=== PATIENT | female | born 1995 | race Caucasian/White ===

== ENCOUNTER 2016-08-10 19:52 | Emergency (ER) | payer BC ==
[~2016-08-10] VITALS: Ht 162.6 cm; Wt 54.4 kg
[2016-08-10] MEDS ORDERED: IV NS 0.9% 1,000 ML BAG IV ONE (20:30)
[2016-08-10] MEDS ORDERED: KETOROLAC TROMETHAMINE INJ 30 MG/ML VIAL IV ONE (20:30)
[2016-08-10] MEDS ORDERED: KETOROLAC TROMETHAMINE INJ 30 MG/ML VIAL ONE (20:31)
[2016-08-10] MEDS ORDERED: IV NS 0.9% 1,000 ML ONE (20:32)
[2016-08-10] MEDS ORDERED: IV SET PRIMARY 1 EA INFUS.SET MC ONE ×3 (20:32→22:26)
[2016-08-10 20:45] LABS: BASOPHILS # (AUTO) 0.1 /CMM (0.0-0.2); BASOPHILS % (AUTO) 0.9 % (0.0-2.0); DIFF TOTAL % 100 %; EOSINOPHILS # (AUTO) 0.2 /CMM (0.0-0.7); EOSINOPHILS % (AUTO) 1.5 % (0.0-6.0); HEMATOCRIT 33 % (33-45); HEMOGLOBIN 10.7 g/dL (11.5-14.8); LYMPHOCYTES # (AUTO) 1.5 /CMM (0.8-4.8); LYMPHOCYTES % (AUTO) 10.8 % (20.0-44.0); MEAN CORPUSCULAR HEMOGLOBIN 25 PG (26.0-33.0); MEAN CORPUSCULAR HGB CONC 33 g/dl (31.0-36.0); MEAN CORPUSCULAR VOLUME 75 fL (82-100); MONOCYTES # (AUTO) 0.9 /CMM (0.1-1.30); MONOCYTES % (AUTO) 6.5 % (2.0-12.0); NEUTROPHILS % (AUTO) 80.3 % (43.0-81.0); PLATELET COUNT (AUTO) 323 /CMM (150-450); RED BLOOD CELL COUNT(AUTO) 4.38 MIL/uL (4.0-5.2); WHITE BLOOD COUNT (AUTO) 13.7 K/uL (4.3-11.0)
[2016-08-10 21:00] LABS: ANION GAP 10 (5-14); CALCIUM, SERUM 8.6 mg/dL (8.5-10.1); CARBON DIOXIDE 30 mmol/L (21-32); CHLORIDE 99 mmol/L (98-107); GFR 69 mL/min (>60); GLUCOSE 95 mg/dL (74-106); POTASSIUM 3.5 mmol/L (3.5-5.1); SODIUM SERUM 136 mmol/L (136-145); UREA NITROGEN, BLOOD 8 mg/dL (7-18)
[2016-08-10 21:06] LABS: ACETAMINOPHEN 5 ug/ml (10-30); ALANINE AMINOTRANSFERASE 23 U/L (12-78); ALBUMIN 3.6 g/dL (3.4-5.0); ASPARTATE AMINOTRANSFERASE 37 U/L (15-37); BILIRUBIN,DIRECT 0.1 mg/dL (0.0-0.2); BILIRUBIN,TOTAL 0.4 mg/dL (0.2-1.0); INDIRECT BILIRUBIN 0.3 mg/dL (0.0-1.1); TOTAL PROTEIN, SERUM 7.6 g/dL (6.4-8.2)
[2016-08-10 21:14] LABS: SALICYLATE 1.5 mg/dL (2.8-20.0)
[2016-08-10] MEDS ORDERED: IV NS 0.9% 500 ML BAG IV ONE (21:30)
[2016-08-10 21:31] LABS: KETONES,URINE NEGATIVE (NEGATIVE); LEUKOCYTE ESTERASE ,URINE 1+ (NEGATIVE); PH,URINE 6.5 (5.0-8.0)
[2016-08-10 21:32] LABS: ADD UA MICROSCOPIC YES; PREGNANCY TEST URINE QUAL NEGATIVE (NEGATIVE)
[2016-08-10 21:39] LABS: ADD URINE CULTURE YES; RBC,URINE 0-2 /HPF (0-2)
[2016-08-10] MEDS ORDERED: CEFTRIAXONE 1GM BAG (ER ONLY) 50 ML IV ONE (21:44)
[2016-08-10 21:46] LABS: CANNABINOID, URINE NEGATIVE (NEGATIVE); PHENCYCLIDINE SCREEN,URINE NEGATIVE (NEGATIVE)
[2016-08-10 21:56] VITALS: BP 112/69
[2016-08-10] MEDS ORDERED: CEFTRIAXONE 1 G in IV D5W 50 ML IV ONE (22:00)
[2016-08-10] MEDS ORDERED: AZITHROMYCIN 500 MG in IV D5W 250 ML IV SCH (22:00)
[2016-08-10] MEDS ORDERED: ASPIRIN 325 MG TABLET ONE (22:09)
[2016-08-10] MEDS ORDERED: IV NS 0.9% 500 ML IV ONE (22:25)
[2016-08-10] MEDS ORDERED: AZITHROMYCIN 500 MG VIAL ONE (22:25)
[2016-08-10] MEDS ORDERED: IV D5W 250 ML IV ONE (22:26)
[2016-08-10] MEDS ORDERED: IV SET PRIMARY PUMP SET 1 EA INFUS.SET MC ONE (22:26)
[2016-08-10] MEDS ORDERED: ASPIRIN 325 MG TABLET PO ONE (22:30)
== END 2016-08-11 00:20 | disposition short-term general hospital (02) ==
LOC: ER 19:57
DX: J18.9 Pneumonia, unspecified organism (principal); A41.9 Sepsis, unspecified organism; I24.9 Acute ischemic heart disease, unspecified; F32.9 Major depressive disorder, single episode, unspecified; F11.10 Opioid abuse, uncomplicated
CPT/HCPCS: 36415; 71010-TC; 80048-TC; 80076-TC; 80305; 81000-TC; 82962-TC; 83605-TC; 84484-TC; 84703-TC; 85025-TC; 87040-TC; 87086-TC; A4606; G6038-TC; G6039-TC; G6040-TC; J0456; J0696; J1885; J7030; J7040; J7060; Z7610

== ENCOUNTER 2017-11-08 15:44 | Emergency (ER) | payer BC ==
[~2017-11-08] VITALS: Ht 162.6 cm; Wt 56.7 kg
--- NOTE | 2017-11-08 15:55 | NUR ---
[id number] FROM DETOX: S/P WITNESSED SEIZURE. Hx OF POLYSUBSTANCE ABUSE. PATIENT IS AWAKE AND ALERT, NOT IN POST ICTAL. PATIENT'S VSS. SEIZURE PRECAUTION OBSERVED. VSS
[2017-11-08] MEDS ORDERED: LORAZEPAM INJ 2 MG/ML VIAL ONE (16:21)
[2017-11-08 16:29] LABS: BASOPHILS % (AUTO) 0.5 % (0.0-2.0); EOSINOPHILS % (AUTO) 2.6 % (0.0-6.0); HEMATOCRIT 35 % (33-45); LYMPHOCYTES # (AUTO) 1.8 /CMM (0.8-4.8); LYMPHOCYTES % (AUTO) 35.9 % (20.0-44.0); MEAN CORPUSCULAR HGB CONC 34 g/dl (31.0-36.0); MEAN CORPUSCULAR VOLUME 83 fL (82-100); MONOCYTES # (AUTO) 0.3 /CMM (0.1-1.30); MONOCYTES % (AUTO) 6.5 % (2.0-12.0); NEUTROPHILS % (AUTO) 54.5 % (43.0-81.0); PLATELET COUNT (AUTO) 218 /CMM (150-450); RED BLOOD CELL COUNT(AUTO) 4.27 MIL/uL (4.0-5.2); WHITE BLOOD COUNT (AUTO) 5.2 K/uL (4.3-11.0)
[2017-11-08] MEDS ORDERED: LEVETIRACETAM (500MG) 500 MG in IV NS 0.9% 100 ML IV ONE (16:30)
[2017-11-08] MEDS ORDERED: LORAZEPAM INJ 2 MG/ML VIAL IVP ONE (16:30)
[2017-11-08 16:36] LABS: CALCIUM, SERUM 8.6 mg/dL (8.5-10.1); CREATININE 0.8 mg/dL (0.6-1.3)
--- NOTE | 2017-11-08 16:45 | NUR ---
Patient is resting comfortably in bed. Will cont to monitor.
--- NOTE | 2017-11-08 18:05 | NUR ---
IV removed. Catheter intact and site benign. Pressure and 4x4 applied to site. No bleeding noted.Patient discharged to home in stable condition. Written and verbal after care instructions given. Patient verbalizes understanding of instruction. Assisted to patient's caregiver car. Ambulatory in a steady gait
[2017-11-08 18:07] VITALS: BP 105/70
== END 2017-11-08 18:08 | disposition home or self-care (01) ==
LOC: ER 15:46 → EDBD 15:46 → ER 18:08
DX: R56.9 Unspecified convulsions (principal); F19.10 Other psychoactive substance abuse, uncomplicated; F32.9 Major depressive disorder, single episode, unspecified
CPT/HCPCS: 36415; 80048; 85025; 96365; 96375; 99284; A4606; J1953; J2060; J7030; Z7610

== ENCOUNTER 2022-04-20 04:52 | Emergency (ER) | payer BC, OTHER ==
[~2022-04-20] VITALS: Ht 162.6 cm; Wt 60.3 kg
[2022-04-20 05:05] VITALS: BP 131/72
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
--- NOTE | 2022-04-20 05:06 | NUR ---
DR. LYNNE NIELSEN AT PT'S BEDSIDE
--- NOTE | 2022-04-20 05:06 | NUR ---
Ada boyd in [facility] - 04/20/[address] DIANE NIELSEN AT PT'S BEDSIDE
[2022-04-20] MEDS ORDERED: SULF1TAB48 PO (05:11)
[2022-04-20] MEDS ORDERED: CEPH500C2 PO (05:11)
--- NOTE | 2022-04-20 05:15 | NUR ---
Patient discharged to home in stable condition. Written and verbal after care instructions given. Patient verbalizes understanding of instruction.
== END 2022-04-20 05:15 | disposition home or self-care (01) ==
LOC: ER 04:58
DX: L03.211 Cellulitis of face (principal); F32.A Depression, unspecified; Z60.2 Problems related to living alone; Z79.899 Other long term (current) drug therapy